=== PATIENT | female | born 1985 | race Caucasian/White ===

== ENCOUNTER 2019-07-04 11:10 | Emergency (ER) | payer OTHER, SELFPAY ==
--- NOTE | 2019-07-04 11:19 | ED.DENTAL ---
HPI - Dental/Oral General Chief complaint: Dental/Oral Stated complaint: Infected tooth, face is swollen Time Seen by Provider: 07/04/19 11:19 Source: patient and RN notes reviewed Mode of arrival: ambulatory Limitations: no limitations History of Present Illness Complaint: tooth pain Onset (ago): hour(s) (1) Duration: worsening Severity: moderate Relieving factors: NSAIDs Exacerbating factors: chewing Context: history of dental caries Associated symptoms: gum swelling Treatment prior to arrival: oral analgesic Related Data Home Medications Medication Instructions Recorded Confirmed escitalopram oxalate 10 mg PO DAILY 07/04/19 07/04/19 Allergies Allergy/AdvReac Type Severity Reaction Status Date / Time No Known Allergies Allergy Verified 07/04/19 11:28 Review of Systems Review of Systems: All systems reviewed & are unremarkable except as noted in HPI and below PMFSH Past Medical History Medical History (Updated 07/04/19 @ 11:34 by Shaquille Lopes MD) Depression Surgical History Surgical History (Updated 07/04/19 @ 11:34 by Shaquille Lopes MD) No history of previous surgery Social History Social History (Updated 07/04/19 @ 11:34 by Shaquille Lopes MD) Smoking packs per day: 1 Smoking cigarettes per day: 20.0 Smoking status: Current every day smoker Alcohol intake: never Substance use: never Exam Const: General: healthy appearing and no acute distress Nutritional Appearance: well nourished Orientation/consciousness: patient oriented x3 Other: Female nurse in room during examination. HENMT: Ears: external ears normal General nose exam: Normal external nose present Face and sinus: edema on the left mandible Mouth: Yes moist mucous membranes Teeth and gingiva: abnormal tooth and associated gingiva upper left second molar tender and with associated gingival edema; pulp not exposed Throat: posterior oropharynx normal Eyes: Conjunctivae: conjunctivae normal Pupils: Equal, round and reactive pupils present EOM: EOMs intact bilaterally Neck: Neck: normal visual inspection and no lymphadenopathy Chest: Chest palpation & inspection: normal inspection of the chest Resp: Effort & Inspection: normal respiratory effort Auscultation: clear to auscultation bilaterally Cardio: Rate: regular rate Rhythm: regular rhythm GI: Auscultation: normal bowel sounds Back/Spine/Pelvis: Cervical Spine: cervical ROM normal Thoracic/Lumbar Spine: thoraco-lumbar ROM normal Skin: General skin exam: normal color Rashes: no rashes Neuro: General: patient oriented x3, moves all extremities and no focal motor deficits Speech: normal speech Gait exam (Neuro): Normal gait present Extrem: General: normal to inspection and no clubbing, cyanosis or edema Psych: Appearance: grossly normal and well kempt Mental Status: mental status grossly normal Affect: normal affect Attitude: cooperative Thought content: Yes Normal thought content present Course Vital Signs Vital signs: Vital Signs Temperature 36.8 C 07/04/19 11:30 Pulse Rate 112 H 07/04/19 11:30 Respiratory Rate 07/04/19 11:30 Blood Pressure 122/65 07/04/19 11:30 Pulse Oximetry 100 07/04/19 11:30 Temperature 36.8 C 07/04/19 11:30 Pulse Rate 112 H 07/04/19 11:30 Respiratory Rate 07/04/19 11:30 Blood Pressure 122/65 07/04/19 11:30 Pulse Oximetry 100 07/04/19 11:30 Discharge Plan Discharge Clinical Impression: Dental abscess Patient Disposition: Home, Self-Care Condition: Stable Instructions: Dental Abscess (ED) Additional Instructions: Use Tylenol or Motrin as needed. Finish all antibiotics as written. Call for dental appointment in approximately 2 weeks if there is availability. Prescriptions: New amoxicillin 500 mg capsule 500 mg PO TID Qty: 30 RF: 0 tramadol 50 mg tablet 50 mg PO Q6H PRN (Reason: pain) Qty: 12 RF: 0 No Action escitalopram oxalate 1
[2019-07-04 11:30] VITALS: BP 122/65; PULSE 112; RESP 20; TEMP 36.8; O2SAT 100
[2019-07-04 11:43] VITALS: RESP 17
== END 2019-07-04 11:38 | disposition home or self-care (01) ==
PROVIDERS: Emergency Provider Emergency Medicine
DX: K04.7 Periapical abscess without sinus (principal)
CPT/HCPCS: 99283